=== PATIENT | female | born 1955 | race Caucasian/White ===

== ENCOUNTER 2019-05-10 12:58 | Emergency (ER) | payer MEDICARE ==
[2019-05-10 13:31] VITALS: BP 186/104; PULSE 77; RESP 18; TEMP 97.9
[2019-05-10] MEDS ORDERED: ACETAMINOPHEN TAB 500 MG TAB PO STA (13:44)
--- NOTE | 2019-05-10 14:36 | XR ---
Left clavicle, left shoulder, left humerus HISTORY: Trauma and pain 2 views of the left humerus, 3 views of the left shoulder, 2 views of the left clavicle. Left lung ap ex as visualized is normal. There is a comminuted proximal left humeral fracture with displaced greater tuberosity and fracture f ragments. No evident dislocation. Left lung apex as visualized is normal. Distal clavicle also shows arthropathy of the acromioclavicular joint. Humerus view shows downturned distal clavicle with some s uggestion of cortical irregularity, difficult difficult to exclude nondisplaced fracture. IMPRESSION: Comminuted proximal left humeral fracture. Questionable fracture seen on one view of the distal left clavicle.
--- NOTE | 2019-05-10 15:27 | ED ---
Upper Extremity HPI - General Chief Complaint: Extremity Injury, Upper Stated Complaint: Fall/Left Arm Injury Time Seen by Provider: 05/10/19 13:34 Source: patient Mode of arrival: ambulatory Limitations: physical limitation - History of Present Illness Initial Comments: Patient is a 64-year-old female presenting to emergency Department with complaints of left shoulder pain after falling while camping today. Patient states she tripped over a tent stake and landed mostly on her left shoulder. Patient denies hitting her head or any other injuries. Patient is unable to move her left shoulder. Patient denies being on blood thinners. No previous history of injury with this left shoulder. Upon arrival to ER patient has shoulder and a sling. Vital signs are stable, afebrile. No other complaints at this time. - Related Data Allergies Allergy/AdvReac Type Severity Reaction Status Date / Time No Known Allergies Allergy Verified 05/10/19 13:31 Review of Systems ROS Statement: Those systems with pertinent positive or pertinent negative responses have been documented in the HPI. ROS Other: All systems not noted in ROS Statement are negative. Past Medical History Past Medical History: Hyperlipidemia, Hypertension, Osteoarthritis (OA), Thyroid Disorder History of Any Multi-Drug Resistant Organisms: Unobtainable Past Surgical History: Hysterectomy Additional Past Surgical History / Comment(s): knee repla Past Psychological History: No Psychological Hx Reported Smoking Status: Never smoker Past Alcohol Use History: None Reported Past Drug Use History: None Reported General Exam - General Exam Comments Initial Comments: GENERAL: Well-appearing, well-nourished and in no acute distress. HEAD: Atraumatic, normocephalic. EYES: Pupils equal round and reactive to light, extraocular movements intact, sclera anicteric, conjunctiva are normal. ENT: TMs normal, nares patent, oropharynx clear without exudates. Moist mucous membranes. NECK: Normal range of motion, supple without lymphadenopathy or JVD. LUNGS: Breath sounds clear to auscultation bilaterally and equal. No wheezes rales or rhonchi. HEART: Regular rate and rhythm without murmurs, rubs or gallops. ABDOMEN: Soft, nontender, normoactive bowel sounds. No guarding, no rebound. No masses appreciated. : Deferred EXTREMITIES: Patient is unable to move left shoulder. Patient has pain on the proximal part of the humerus. No pain in the left elbow, forearm, or wrist. Neurovascular intact. No clubbing or cyanosis. NEUROLOGICAL: Cranial nerves II through XII grossly intact. Normal speech, normal gait. PSYCH: Normal mood, normal affect. SKIN: Warm, Dry, normal turgor, no rashes or lesions noted. Limitations: physical limitation Course Vital Signs 05/10/19 13:29 Temperature 97.9 F Pulse Rate 77 Respiratory 18 Rate Blood Pressure 186/104 O2 Sat by Pulse 98 Oximetry Medical Decision Making - Medical Decision Making Patient is 64-year-old female here for left shoulder pain prior to arrival. Patient tripped over a tent stake and landed mostly on her left shoulder. Patient reports no other injuries. On exam patient is unable to move her left shoulder. No pain in the left elbow, wrist, forearm. X-ray of the left shoulder shows a comminuted proximal left humeral fracture. Questionable fracture seen on one view of the distal left clavicle. Patient was placed in a splint and sling and will follow up with ortho tomorrow. Patient is stable for discharge at this time. Neurovascular intact. Return parameters were discussed with the patient she verbalized understanding. Case discussed with Dr. Davis. Disposition Clinical Impression: Fracture of humerus, proximal, left, closed Disposition: HOME SELF-CARE Condition: Stable Instructions (If sedation given, give patient instructions): Arm Fracture in Adults (ED) Additional Instructions: Please return to the Emergency Department if symptoms worsen or any other concerns. Follow up with orthopedics as discussed today or tomorrow. Keep splint and sling on until orthopedic follow-up. Is patient prescribed a controlled substance at d/c from ED?: No Referrals: Adam Mcnair MD [Primary Care Provider] - 1-2 days Cipriano Nina MD [Medical Doctor] - 1-2 days
== END 2019-05-10 15:42 | disposition home or self-care (01) ==
LOC: EC 12:58
DX: S42.252A Displaced fracture of greater tuberosity of left humerus, initial encounter for closed fracture (principal); M19.90 Unspecified osteoarthritis, unspecified site; Z96.659 Presence of unspecified artificial knee joint; W01.0XXA Fall on same level from slipping, tripping and stumbling without subsequent striking against object, initial encounter
CPT/HCPCS: 29105; 99283